=== PATIENT | female | born 1945 | race Caucasian/White ===

== ENCOUNTER → 2023-10-23 10:38 | Outpatient (REF) | payer MEDICARE, SELFPAY ==
[2023-10-23 11:32] LABS: Urine Albumin Negative (Neg - Trace); Urine Bilirubin Negative (Negative); Urine Character Clear (Clear); Urine Color Yellow; Urine Glucose Negative (Negative); Urine Ketone Negative (Negative); Urine Leukocyte Negative (Negative); Urine Nitrite Negative (Negative); Urine Occult Blood Negative (Negative); Urine Urobilinogen Negative (Neg - 1+)
[2023-10-23 11:46] LABS: ALT (SGPT) 18 U/L (0-35); AST (SGOT) 33 U/L (14-36); Albumin 4.3 g/dl (3.5-5.0); Alkaline Phosphatase 54 U/L (38-126); Blood Urea Nitrogen 15 mg/dl (7-17); Calcium 10.1 mg/dl (8.4-10.2); Carbon Dioxide 26 mmol/L (22-30); Chloride 103 mmol/L (98-107); Glucose 98 mg/dl (70-99); HDL Cholesterol 54 mg/dl; LDL Cholesterol, Calculated 76 mg/dl; Potassium 3.8 mmol/L (3.5-5.1); Sodium 140 mmol/L (135-145); Total Bilirubin 0.6 mg/dl (0.2-1.3); Total Cholesterol 151 mg/dl (50-199); Triglyceride 109 mg/dl (10-149); Very Low Density Lipoprotein 21 mg/dl (0-30); eGFR > 60.00
[2023-10-23 13:16] LABS: Glycohemoglobin (HgbA1c) 5.6 % (4.0-5.6)
== END ==
LOC: OLABWIL 10:38
PROVIDERS: ATTENDING PHYSICIAN Emergency Medicine
DX: Z00.00 Encounter for general adult medical examination without abnormal findings (principal); I10 Essential (primary) hypertension; E78.1 Pure hyperglyceridemia; D64.9 Anemia, unspecified
CPT/HCPCS: 36415; 80053; 80061; 81003; 83036; 84443

== ENCOUNTER → 2024-02-03 10:23 | Outpatient (REF) | payer MEDICARE, SELFPAY | LOC: HWWDC 10:23 | PROVIDERS: ATTENDING PHYSICIAN Emergency Medicine | DX: Z12.31 Encounter for screening mammogram for malignant neoplasm of breast (principal) | CPT/HCPCS: 77063; 77067 ==

== ENCOUNTER → 2024-02-23 13:36 | Outpatient (REF) | payer MEDICARE, SELFPAY | LOC: HWRCS 13:36 | PROVIDERS: ATTENDING PHYSICIAN Internal Medicine Cardiovascular Disease | DX: I35.0 Nonrheumatic aortic (valve) stenosis (principal) | CPT/HCPCS: 93306 ==

== ENCOUNTER → 2024-04-22 07:21 | Outpatient (REF) | payer MEDICARE, SELFPAY | LOC: DHCBC/DCA 07:21 | PROVIDERS: ATTENDING PHYSICIAN Internal Medicine Cardiovascular Disease; FAMILY PHYSICIAN Emergency Medicine | DX: I35.0 Nonrheumatic aortic (valve) stenosis (principal); I10 Essential (primary) hypertension | CPT/HCPCS: 78452; 93017; A9500; J2785 ==

== ENCOUNTER → 2024-08-19 10:25 | Outpatient (REF) | payer MEDICARE, SELFPAY ==
[2024-08-19 11:32] LABS: % Immature Granulocytes 0.4 % (0-0.5); % Monocytes 8.9 % (1.7-9.3); % Neutrophils 55.7 % (42.2-75.2); Absolute Basophils 0.1 10^3/uL (0-0.2); Absolute Eosinophils 0.2 10^3/uL (0-0.7); Absolute Lymphocytes 1.5 10^3/uL (1.2-3.4); Absolute Monocytes 0.4 10^3/uL (0.1-0.6); Absolute Neutrophils 2.8 10^3/uL (1.4-6.5); Hematocrit 32.7 % (37.0-47.0); Hemoglobin 11.3 g/dL (12.0-16.0); Mean Corp Hgb Conc. 34.6 g/dL (33.0-37.0); Mean Corpuscular Hgb 31.7 pg (27.0-31.0); Mean Corpuscular Volume 91.9 fL (81.0-99.0); Nucleated Red Blood Cells % 0 %; Red Blood Cell Count 3.56 10^6/uL (4.20-5.40); Red Cell Dist. Width 14.2 % (11.5-14.5)
[2024-08-19 11:43] LABS: ALT (SGPT) 17 U/L (0-35); AST (SGOT) 29 U/L (14-36); Albumin 4.3 g/dl (3.5-5.0); Alkaline Phosphatase 48 U/L (38-126); Blood Urea Nitrogen 13 mg/dl (7-17); Calcium 9.5 mg/dl (8.4-10.2); Carbon Dioxide 26 mmol/L (22-30); Chloride 101 mmol/L (98-107); Glucose 98 mg/dl (70-99); Iron 138 ug/dl (37-170); LDH 201 U/L (120-246); Potassium 4.5 mmol/L (3.5-5.1); Sodium 137 mmol/L (135-145); Total Bilirubin 0.8 mg/dl (0.2-1.3); eGFR > 60.00
[2024-08-19 11:52] LABS: Percent Saturation 37 % (20-50); Total Iron Binding Capacity 368 ug/dl (265-497)
== END ==
LOC: OLABWIL 10:25
PROVIDERS: ATTENDING PHYSICIAN Internal Medicine Hematology & Oncology
DX: D64.9 Anemia, unspecified (principal)
CPT/HCPCS: 36415; 80053; 82728; 82784; 83521; 83540; 83550; 83615; 84155; 84165; 85025; 86334

== ENCOUNTER → 2024-09-06 09:36 | Outpatient (REF) | payer MEDICARE, SELFPAY | LOC: REG 09:36 | PROVIDERS: ATTENDING PHYSICIAN Emergency Medicine | DX: R19.7 Diarrhea, unspecified (principal); R53.83 Other fatigue | CPT/HCPCS: 87324; 87449 ==

== ENCOUNTER → 2024-09-16 12:19 | Outpatient (REF) | payer MEDICARE, SELFPAY ==
[2024-09-16 12:40] LABS: % Basophils 0.8 % (0-2); % Eosinophils 3.9 % (0-6); % Immature Granulocytes 0.6 % (0-0.5); % Lymphocytes 38.6 % (20.5-51.1); % Monocytes 7.4 % (1.7-9.3); % Neutrophils 48.7 % (42.2-75.2); Absolute Basophils 0.1 10^3/uL (0-0.2); Absolute Eosinophils 0.3 10^3/uL (0-0.7); Absolute Lymphocytes 2.5 10^3/uL (1.2-3.4); Absolute Monocytes 0.5 10^3/uL (0.1-0.6); Absolute Neutrophils 3.1 10^3/uL (1.4-6.5); Hematocrit 34.8 % (37.0-47.0); Hemoglobin 11.5 g/dL (12.0-16.0); Mean Corpuscular Hgb 30.2 pg (27.0-31.0); Mean Corpuscular Volume 91.3 fL (81.0-99.0); Mean Platelet Volume 12.3 fL (7.4-10.4); Nucleated Red Blood Cells % 0 %; Platelet Count 268 10^3/uL (130-400); Red Blood Cell Count 3.81 10^6/uL (4.20-5.40); Red Cell Dist. Width 14.5 % (11.5-14.5); White Blood Cell Count 6.5 10^3/uL (4.8-10.8)
[2024-09-16 13:57] LABS: TSH Reflex To Free T4 3.08 uIU/ml (0.47-4.68)
== END ==
LOC: OLABWIL 12:19
PROVIDERS: ATTENDING PHYSICIAN Emergency Medicine
DX: R19.7 Diarrhea, unspecified (principal); R53.83 Other fatigue
CPT/HCPCS: 36415; 82728; 84443; 85025

== ENCOUNTER 2024-10-25 06:49 | Day surgery (SDC) | payer MEDICARE, SELFPAY ==
[2024-10-11 08:51] LABS: Hemoglobin 10.6 g/dL (12.0-16.0); Mean Corp Hgb Conc. 34.2 g/dL (33.0-37.0); Mean Corpuscular Hgb 30.8 pg (27.0-31.0); Mean Corpuscular Volume 90.1 fL (81.0-99.0); Platelet Count 238 10^3/uL (130-400); Red Blood Cell Count 3.44 10^6/uL (4.20-5.40); Red Cell Dist. Width 14.3 % (11.5-14.5); White Blood Cell Count 5.1 10^3/uL (4.8-10.8)
[2024-10-11 09:23] LABS: Blood Urea Nitrogen 15 mg/dl (7-17); Calcium 9.8 mg/dl (8.4-10.2); Carbon Dioxide 28 mmol/L (22-30); Chloride 102 mmol/L (98-107); Glucose 92 mg/dl (70-99); Potassium 3.9 mmol/L (3.5-5.1); Sodium 138 mmol/L (135-145); eGFR 56.95
[2024-10-11 14:12] VITALS: BMI 28.0
[2024-10-25] VITALS (7 sets, daily range): BP systolic 127–191; BP diastolic 58–87; BMI 28.0
--- NOTE | 2024-10-25 09:20 | HP.FOC2 ---
Focused History & Physical
Chief Complaint
HPI:
Chief Complaint: Incisional/ventral hernia
HPI / Indication for Planned Procedure: Patient is an 79-year-old female who has a past abdominal surgical history notable for laparotomy in 1990 for small bowel obstruction. She has a longstanding history of a small incisional hernia that she has
been following expectantly. It recently has begun to increase in size a bit prompting surgical evaluation. She presents today for scheduled operative correction of her symptomatic incisional hernia
Relevant Past Medical History: Other (Depression/anxiety, hypertension, anemia, GERD, hypertriglyceridemia, history of pancreatitis, polyclonal gammopathy)
Relevant Social History: Negative
Relevant Family History: Negative
Relevant Past Surgical History: Positive for ( x 3, exploratory laparotomy lysis of adhesions, left wrist fracture repair)
Review of Systems
Review of Pertinent Systems: All Systems Negative
Medication
See Medication form for detailed medications: Yes
Medication List (including Herbals & OTC):
fenofibrate 160 mg tablet 160 mg PO QPM High cholesterol 11/28/21
omeprazole 20 mg capsule,delayed release 20 mg PO QPM Gastrointestinal issue 11/28/21
citalopram 10 mg tablet 10 mg PO DAILY 10/18/24
citalopram 20 mg tablet 20 mg PO DAILY 10/18/24
cyanocobalamin (vitamin B-12) 5,000 mcg sublingual tablet (Vitamin B-12) 5,000 mcg sublingual DAILY 10/18/24
ferrous sulfate 325 mg (65 mg iron) tablet (iron) 325 mg PO Q48H 10/18/24
appwemle-kmz-fram-FA-Ca carb-vit K 18 mg iron-400 mcg-500 mg tablet 1 tab PO DAILY 10/18/24
valsartan 160 mg tablet 160 mg PO QPM 10/18/24
vit C 250 mg-vit E 90 mg-zinc 40 mg-copper 1 xo-dadxik-vrmfqz capsule (PreserVision AREDS-2) 1 tab PO AMHS 10/18/24
Medications Reviewed: Yes
Allergies and Reactions
Patient has Allergies: No
Noted Allergies and Reactions:
Allergy/AdvReac Type Severity Reaction Status Date / Time
No Known Allergies Allergy Verified 10/18/24 10:32
Pertinent Physical Exam
All Other Systems: Negative
Head/Neck: Normal
Lungs: Normal
Heart: Normal
Abdomen: Other (Midline laparotomy surgical scar. Soft nontender incisional hernia just above the umbilical region. Fascial defect likely 2 to 3 cm)
Extremities: Normal
Neurological: Normal
Diagnosis / Assessment
79-year-old female presenting for scheduled operative correction symptomatic incisional/ventral hernia
Plan / Procedure
Open repair incisional/ventral hernia with mesh
Anesthesia/Sedation to be done by Anesthesia Provider: Yes
--- NOTE | 2024-10-25 09:22 | W.SUR.PREOP ---
Pre-Operative Surgical Note
-
I have examined this patient prior to the performance of the scheduled procedure.
The patient's condition is unchanged from the time of the current History and
Physical and the patient is able to undergo the scheduled procedure.
[2024-10-25] MEDS: NORMOSOL-R/PLASMALYTE-A 1000 IV (11:51)
[2024-10-25] MEDS: TYLENOL 1000 MG PO (11:51)
--- NOTE | 2024-10-25 14:59 | W.IMMPOSTOP ---
Addendum entered and electronically signed by Chalino Stanford MD 10/29/24 16:28:
#[id number]
Original Note:
Surgical Immed Post Op Note
-
Primary Surgeon: Chalino Stanford MD
Assisting Surgeon: Chloe Peralta PA-C
Pre-op Diagnosis: Ventral/incisional hernia
Post-op Diagnosis: Ventral/incisional hernia; 2 cm
Procedure Performed: Open repair ventral/incisional hernia with mesh; Ventralex ST 6.4 cm round
Anesthesia Type: MAC +1% lidocaine/0.25% Marcaine w/ epi
Specimen / Cultures: None
Estimated Blood Loss: 6 mL
Complications: None immediate
Operative Findings: Ventral/incisional hernia along superior aspect of previous laparotomy surgical scar. Hernia sac and contents reduced and fascial edges cleared. Approximately 2 cm fascial defect oriented horizontally. Underlay preperitoneal
mesh repair with Ventralex ST 6.4 cm round secured the linea alba superiorly and inferiorly with 0 PDS horizontal mattress transfascial fixation. Closure of fascial defect with 0 PDS [id number].
The assistance of Chloe Peralta PA-C was required due to the complexity of the procedure. During the procedure Chloe Peralta PA-C assisted with retraction for exposure, and closure of the incision site.
== END 2024-10-25 16:04 | disposition home or self-care (01) ==
LOC: SDS 06:49
PROVIDERS: ATTENDING PHYSICIAN Surgery; FAMILY PHYSICIAN Emergency Medicine; OTHER PHYSICIAN Internal Medicine Cardiovascular Disease
DX: K43.2 Incisional hernia without obstruction or gangrene (principal); Z98.890 Other specified postprocedural states; Z98.0 Intestinal bypass and anastomosis status
CPT/HCPCS: 49591; 80048; 85027; C1781

== ENCOUNTER → 2024-12-21 10:26 | Outpatient (REF) | payer MEDICARE, SELFPAY ==
[2024-12-21 19:10] LABS: Vitamin D, 25-OH*** 30.9 ng/mL (30-80)
[2024-12-21 19:43] LABS: Vitamin B12 > 1000 pg/ml (239-931)
== END ==
LOC: OLABWIL 10:26
PROVIDERS: ATTENDING PHYSICIAN Emergency Medicine
DX: R53.83 Other fatigue (principal)
CPT/HCPCS: 36415; 82306; 82607